=== PATIENT | female | born 1975 | race African-American/Black ===

== ENCOUNTER 2018-01-30 08:26 | Outpatient (CLI) | payer MEDICAID, OTHER | END 2018-01-30 08:27 | disposition home or self-care (01) | LOC: BICULT 08:26 | PROVIDERS: ATTEND Nurse Practitioner Family | DX: N93.9 Abnormal uterine and vaginal bleeding, unspecified (principal) | CPT/HCPCS: 76856 ==

== ENCOUNTER 2018-03-30 12:36 | Outpatient (CLI) | payer OTHER ==
--- NOTE | 2018-03-30 16:07 | MMO ---
BILATERAL SCREENING MAMMOGRAM: HISTORY: A 42-year-old female. Routine screening mammography. COMPARISON: None. Baseline mammogram. TECHNIQUE: CC and MLO views of both breasts are submitted for interpretation. This patient's mammogram is revie wed with the assistance of computer-aided detection. FINDINGS: Breasts are composed of scattered fibroglandular tissue. Bilaterally, no suspicious dominant mass, a rchitectural distortion, or suspicious calcification. IMPRESSION: BI-RADS category 1, negative exam. RECOMMENDATION: Annual mammogram. BIRADS 1: Negative Routine annual screening mammography (for women over age 40) POS: [facility]
== END 2018-03-30 12:37 | disposition home or self-care (01) ==
LOC: SCSMAMMO 12:36
PROVIDERS: ATTEND Nurse Practitioner Family
DX: Z12.31 Encounter for screening mammogram for malignant neoplasm of breast (principal)
CPT/HCPCS: 77067

== ENCOUNTER 2018-05-01 11:03 | Outpatient (CLI) | payer OTHER ==
[2018-05-01 12:39] LABS: Hemoglobin 12.2 g/dL (12.0-16.0); Mean Corpuscular HGB CONC 31.6 g/dL (32.0-36.0); Mean Corpuscular Hemoglobin 31.5 pg (27.0-31.0); Mean Corpuscular Volume 99.8 fL (78.0-98.0); Mean Platelet Volume 8.1 fL (7.4-10.4); Platelet Count 355 thou/uL (130-400); RBC Distribution Width 11.7 % (11.5-14.5); Red Blood Cell (RBC) Count 3.88 mill/uL (4.20-5.40); White Blood Cell (WBC) Count 5.6 thou/uL (4.8-10.8)
== END 2018-05-01 11:04 | disposition home or self-care (01) ==
LOC: LABBT 11:03
PROVIDERS: ATTEND Obstetrics & Gynecology
DX: Z01.812 Encounter for preprocedural laboratory examination (principal); N92.0 Excessive and frequent menstruation with regular cycle
CPT/HCPCS: 85027; 86850; 86900; 86901

== ENCOUNTER 2018-05-04 06:01 | Day surgery (SDC) | payer OTHER ==
--- NOTE | 2018-04-30 10:25 | HP ---
She is scheduled for outpatient day surgery on May 04, 2018. HISTORY OF PRESENT ILLNESS: Ms. Gruber is a 42-year-old -[place] female with previous tubal li gation who has been having heavy menstrual bleeding issues. She is currently on Norethindrone 0.35 m g daily for heavy flow. She has also tried Loestrin oral contraceptives with no benefit. Pap smear in the past year was normal and as noted, she has a tubal ligation for contraception. She had a transvaginal ultrasound performed on March 03, 2018, at [facility] there. There was no evidence of fibroids or abnormal endometrial cavity findings where adnexal masses noted. Ther e was mention of a possible arcuate uterus seen. PAST MEDICAL HISTORY: Chronic hypertension, asthma and chronic back pain. PAST SURGICAL HISTORY: Tubal ligation. CURRENT MEDICATIONS: Amlodipine 5 mg daily, hydrochlorothiazide 12.5 mg daily, naproxen 250 mg b.i.d . p.r.n., norethindrone 0.35 mg daily, ProAir MDI 2 puffs q.4 h. p.r.n. asthma, Topamax 100 mg tablet nightly, tramadol 50 mg q.6 hours p.r.n. pain. ALLERGIES: She has no known drug allergies. SOCIAL HISTORY: She is a nonsmoker. FAMILY HISTORY: Noncontributory. PHYSICAL EXAMINATION: VITAL SIGNS: Her blood pressure is 118/80, weight 254 pounds, height 5 feet 6 inches, BMI of 41. HEENT: Within normal limits. CHEST: Clear to auscultation. HEART: Regular rate and rhythm. S1, S2 heart sounds. No murmurs, rubs, or gallops. ABDOMEN: Soft, nontender, nondistended with no palpable masses. PELVIC: Vulva and vagina had no lesions. Cervix had no lesions. Uterus, normal size, nontender wit h no masses. Adnexa were nontender with no masses. ASSESSMENT: This is a 42-year-old -[place] female with tubal ligation, has failed medical ma nagement trial for menorrhagia. PLAN: Proceed with a trial of a hysteroscopy and D&C with Nicolette ablation procedure. This is sched uled for 05/04/2018.
[2018-05-01 11:30] VITALS: BMI 40.8
[2018-05-04] MEDS ORDERED: CEFAZOLIN/Water 2 GM/20 ML SYRINGE ONE (06:15)
[2018-05-04] MEDS ORDERED: Fentanyl 100 MCG/2 ML VIAL ONE (07:28)
--- NOTE | 2018-05-04 11:01 | OP ---
DATE OF PROCEDURE: 05/04/2018 PREOPERATIVE DIAGNOSES: A 42-year-old female with a tubal ligation with menorrhagia unresponsive to medical management. POSTOPERATIVE DIAGNOSES: 1. A 42-year-old female with a tubal ligation with menorrhagia unresponsive to medi bret management. 2. 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 PROCEDURE PERFORMED: Diagnostic hysteroscopy with D&C. SURGEON: Mary Keenan M.D. ANESTHESIA: General endotracheal. ESTIMATED BLOOD LOSS: Minimal. COMPLICATIONS: None. COUNTS: Correct x2. ANTIBIOTICS: Two grams Ancef secondary history teacher to the OR. FINDINGS: 1. Normal ecto and endocervical cervix. 2. Appears to have a midline septum approximately 1/2 the uterine cavity with inability to visualize bilateral tubal ostia, therefore ablation procedure not performed due to the obstruction of the sept um. 3. The fluid deficit from distension media was 160 mL of saline. DISPOSITION: Recovery room and then discharged to PACU and discharged home. We will then recommend for patient a robotic hysterectomy in the near future for treatment of her menorrhagia. DESCRIPTION OF OPERATIVE PROCEDURE: The patient previously received informed consent in regards to reagan martin. She was taken back to the operating room where she received a general endotracheal anestheti c agent without complications. She was placed in dorsal lithotomy position with use of Melchor stirrup s, prepped and draped in usual sterile fashion. A sidearm speculum was placed in the vagina after th e bladder had been in and out catheterized during the prep process. The sound was noted to sound to 8 cm with somewhat of deviation to the right side of the cavity on initial sounding. The cervix was then sequentially dilated to size 16 Izaguirre dilator. The diagnostic 5 mm hysteroscope Truclear system was assembled and placed through the cervical os. We went through the ectocervix and endocervical c anal, this appeared to be veering to the cavity to the right side which we were able to see the fundu s in this region, but were unable to see the left fundal component and tubal ostia. We redirected di fferent positions and dilated further with inability again to see both tubal ostia and one visualizat ion view. There appeared to be kind of a fibrous type septum midway fpc up the cavity. Due to t he septal symptom findings, the ablation procedure was not performed due to the inability to adequate ly perform this in a safe manner. The hysteroscope and tenaculum along with speculum removed, hemost asis cervical site was confirmed. The patient was awakened from her anesthesia and transferred to [facility] recovery room. Findings will be discussed with the patient and therefore recommendation for a hysterectomy for her m enorrhagia issues will be addressed due to the noted and confirmation of the uterine septum.
[2018-05-04] MEDS ORDERED: Ketorolac Tromethamine 30 MG/ML VIAL ONE (17:17)
[2018-05-04] MEDS ORDERED: Ondansetron PF 4 MG/2 ML Vial ONE (17:17)
[2018-05-04] MEDS ORDERED: PROPOFOL 200 MG/20 ML VIAL ONE (17:17)
[2018-05-04] MEDS ORDERED: Dexamethasone 20 MG/5 ML VIAL ONE (17:17)
== END 2018-05-04 10:50 | disposition home or self-care (01) ==
LOC: SDC 06:01
PROVIDERS: ATTEND Obstetrics & Gynecology
PROC: 0UDB8ZX Extraction of Endometrium, Via Natural or Artificial Opening Endoscopic, Diagnostic (ICD-10-PCS; principal; 2018-05-04)
DX: N92.0 Excessive and frequent menstruation with regular cycle (principal); I10 Essential (primary) hypertension; J45.909 Unspecified asthma, uncomplicated; Z79.899 Other long term (current) drug therapy
CPT/HCPCS: 88305; J1100; J1885; J2405; J2704; J3010

== ENCOUNTER 2018-06-01 10:55 | Outpatient (CLI) | payer OTHER ==
[2018-06-01 13:47] LABS: Hemoglobin 11.1 g/dL (12.0-16.0); Mean Corpuscular HGB CONC 32.4 g/dL (32.0-36.0); Mean Corpuscular Hemoglobin 31.8 pg (27.0-31.0); Mean Platelet Volume 8.6 fL (7.4-10.4); Platelet Count 329 thou/uL (130-400); RBC Distribution Width 11.3 % (11.5-14.5); Red Blood Cell (RBC) Count 3.48 mill/uL (4.20-5.40)
[2018-06-01 13:55] LABS: BHCG - Serum Negative (NEGATIVE); Pregs Control Background? CLEAR/WHITE (CLR/WHITE); Pregs Control Bar Appear? YES (CONTROL BAR)
[2018-06-01 14:03] LABS: ALT (SGPT) 15 U/L (8-55); AST (SGOT) 16 U/L (5-34); Albumin 3.9 g/dL (3.5-5.0); Alkaline Phosphatase 54 U/L (40-150); Anion Gap 10 mmol/L (10-20); BUN (Urea Nitrogen) 9 mg/dL (7.0-18.7); Bilirubin, Total 0.2 mg/dL (0.2-1.2); Calc. Creatinine Clearance 0 mL/min (70-130); Calcium 9.3 mg/dL (7.8-10.44); Carbon Dioxide 28 mmol/L (22-29); Chloride 105 mmol/L (98-107); Estimated GFR-MDRD Greater than 90; Globulin 3.5 g/dL (2.4-3.5); Glucose 88 mg/dL (70-105); Potassium 4.4 mmol/L (3.5-5.1); Protein, Total 7.4 g/dL (6.0-8.3); Sodium 139 mmol/L (136-145)
--- NOTE | 2018-06-01 19:29 | EKG ---
Test Reason : Blood Pressure : / mmHG Vent. Rate : 061 BPM Atrial Rate : 061 BPM P-R Int : 158 ms QRS Dur : 088 ms QT Int : 422 ms P-R-T Axes : 035 058 044 degrees QTc Int : 424 ms Normal sinus rhythm Early repolarization Normal ECG No previous ECGs available Confirmed by DR. Lizbeth SOLANO MD ([id number]) on 06/01/2018 7:28:55 PM Referred By: DARINEL Confirmed By:DR. Lizbeth SOLANO MD
== END 2018-06-01 10:56 | disposition home or self-care (01) ==
LOC: LABBT 10:55
PROVIDERS: ATTEND Obstetrics & Gynecology
DX: Z01.818 Encounter for other preprocedural examination (principal); N92.0 Excessive and frequent menstruation with regular cycle; Q51.20 Other doubling of uterus, unspecified
CPT/HCPCS: 80053; 84703; 85027; 93005; 93010

== ENCOUNTER 2018-06-01 11:00 | Inpatient (IN) | payer OTHER ==
[2018-06-01 11:38] VITALS: BMI 39.5
--- NOTE | 2018-06-02 08:03 | HP ---
DATE OF SURGERY: 06/09/2018 HISTORY OF PRESENT ILLNESS: Ms. Gruber is a 42-year-old female with previous vaginal deliveries and tubal ligation, who has a history of very heavy menstruation. She has been treated wi th norethindrone 0.25 mg daily for heavy flow. She has also tried Loestrin oral contraceptives with no benefit. She has had a recent Pap smear in the past year which was normal and is desiring surgica l therapy for this. She had an attempted diagnostic hysteroscopy with endometrial ablation procedure on 05/04/2018. At that time on hysteroscopic evaluation, she was noted to have a uterine septum roman roximately one-third of the uterine cavity that made it impossible to adequately ablate the endometri al cavity due to positioning of the Nicolette device. Therefore, the procedure was aborted and she is now scheduled for definitive surgical therapy with a robotic hysterectomy. The endometrial sampling at that time was performed, it was benign findings with menstrual endometrium. PAST MEDICAL HISTORY: Significant for chronic hypertension, asthma, and chronic back pain. PAST SURGICAL HISTORY: Noted tubal ligation and then a recent diagnostic hysteroscopy and D&C. CURRENT MEDICATIONS: Amlodipine 5 mg daily, hydrochlorothiazide 12.5 mg daily, naproxen 250 mg b.i.d . p.r.n., ProAir metered dose inhaler 2 puffs q.4 hours p.r.n., Topamax 100 mg nightly, tramadol 50 m g q.6 hours p.r.n. back pain. ALLERGIES: She has no known drug allergies. SOCIAL HISTORY: Non-smoker, minimal alcohol use. FAMILY HISTORY: Noncontributory. PHYSICAL EXAMINATION: VITAL SIGNS: Her blood pressure is 118/80, her weight is 254 pounds, height 5 feet 6 inches, BMI of 41. HEENT: Within normal limits. NECK: Supple, no thyromegaly. CHEST: Clear to auscultation. HEART: Regular rate and rhythm. S1, S2 heart sounds with no murmurs, rubs or gallops. ABDOMEN: Soft, nontender, nondistended. No palpable masses. PELVIC: Vulva and vagina had no lesions. Cervix had no lesions. Uterus is normal size, nontender w ith no masses. Adnexa were nontender with no masses. ASSESSMENT: This is a 42-year-old female, tubal ligation with menorrhagia. Attempt ed hysteroscopy, endometrial ablation procedure recently with noted findings of a uterine septum rivera ng ablation procedure not possible. The patient is desiring definitive surgical therapy and we now p eulogio to proceed with a robotic hysterectomy with bilateral salpingectomy with ovarian preservation as long as the ovaries are normal. Risks and benefits of procedure have been discussed in detail, and s he is set for surgery on 06/09/2018.
[2018-06-09] MEDS ORDERED: CeleCOXIB 100 MG CAP ONE (09:22)
[2018-06-09] MEDS ORDERED: CEFAZOLIN 2 GM/50 ML BAG ONE (09:22)
[2018-06-09] MEDS ORDERED: Famotidine/PF 20 mg/2ml Vial ONE (09:22)
[2018-06-09] MEDS ORDERED: Gabapentin 300 MG CAP ONE (09:22)
[2018-06-09] MEDS ORDERED: Bupivacaine HCl 0.5%/Epinephrine 1:200,000/PF 30 ml Vial ONE (10:33)
[2018-06-09] MEDS ORDERED: Midazolam HCl 2 mg/2 ml Vial ONE (12:05)
[2018-06-09] MEDS ORDERED: Fentanyl 250 MCG/5 ML VIAL ONE (12:05)
[2018-06-09] MEDS ORDERED: Promethazine HCl 25 MG/ML VIAL IM PRN ×2 (14:26→16:43)
[2018-06-09] MEDS ORDERED: Ondansetron HCl/PF 4 MG/2 ML Vial IVP PRN (14:26)
[2018-06-09] MEDS ORDERED: Ketorolac Tromethamine 30 MG/ML VIAL IVP PRN (14:26)
[2018-06-09] MEDS ORDERED: Promethazine HCl 25 MG/ML VIAL SLOW IVP PRN (14:26)
[2018-06-09] MEDS ORDERED: Meperidine HCl/PF 25 MG/ML VIAL SLOW IVP PRN (14:26)
[2018-06-09] MEDS ORDERED: Fentanyl 100 MCG/2 ML VIAL ONE ×2 (14:47→15:18)
[2018-06-09] MEDS ORDERED: Glycopyrrolate 0.2 MG/ML 5 ML SYRINGE ONE (16:32)
[2018-06-09] MEDS ORDERED: PROPOFOL 200 MG/20 ML VIAL ONE (16:32)
[2018-06-09] MEDS ORDERED: Dexamethasone 20 MG/5 ML VIAL ONE (16:32)
[2018-06-09] MEDS ORDERED: Lidocaine 1% PF 5 ML VIAL ONE (16:32)
[2018-06-09] MEDS ORDERED: Ondansetron PF 4 MG/2 ML Vial ONE (16:32)
[2018-06-09] MEDS ORDERED: diphenhydrAMINE 25 MG CAP PO PRN (16:43)
[2018-06-09] MEDS ORDERED: Ondansetron PF 4 MG/2 ML Vial IVP PRN (16:43)
[2018-06-09] MEDS ORDERED: Morphine 4 MG/ML VIAL SLOW IVP PRN (16:43)
[2018-06-09] MEDS ORDERED: Simethicone Chewable 80 MG TAB PO PRN (16:43)
[2018-06-09] MEDS ORDERED: traMADol HCl 50 MG TAB PO PRN ×3 (16:43→17:55)
[2018-06-09] MEDS ORDERED: Bisacodyl 10 MG SUPP PR PRN (16:43)
[2018-06-09] MEDS ORDERED: PROVENTIL INHALER 6.7 G (200 INHALATIONS) INH PRN (17:49)
[2018-06-09] MEDS ORDERED: Methocarbamol 500 MG TAB PO PRN (17:53)
[2018-06-09] MEDS: Labetalol HCl 100 MG/20 ML VIAL SLOW IVP PRN ×3 (19:54→20:38)
[2018-06-09] MEDS: Acetaminophen 1,000 MG in Premix Bag 1 BAG IVPB SCH (19:59)
[2018-06-09] MEDS: Ibuprofen 800 MG TAB PO SCH (20:45)
[2018-06-09] MEDS: Topiramate 100 MG TAB PO SCH (20:47)
[2018-06-09] MEDS ORDERED: Topiramate 100 MG TAB PO SCH (21:00)
--- NOTE | 2018-06-09 22:45 | OP ---
DATE OF PROCEDURE: 06/09/2018 PREOPERATIVE DIAGNOSES: 1. A 42-year-old female with menorrhagia, unresponsive to medical therapy. 2. Previous attempted endometrial ablation, unable to perform due to uterine septum. POSTOPERATIVE DIAGNOSES: 1. A 42-year-old female with menorrhagia, unresponsive to medical therapy. 2. Previous attempted endometrial ablation, unable to perform due to uterine septum. PROCEDURE PERFORMED: Robotic total laparoscopic hysterectomy and bilateral salpingectomy. ANESTHESIA: General endotracheal. ESTIMATED BLOOD LOSS: 50 mL. COMPLICATIONS: None. COUNTS: Correct x2. ANTIBIOTICS: 2 g Ancef, on-call to the OR. PATHOLOGY: Uterus, cervix, and bilateral tubes. FINDINGS: 1. Normal bilateral ovaries and fallopian tubes with pervious salpingectomy. 2. normal-appearing uterus. 3. Bilateral ureteral peristalsis noted post procedure. 4. Clear urine present in Braga catheter post procedure. DISPOSITION: Recovery room, stable. DESCRIPTION OF PROCEDURE: The patient previously received informed consent in regard to surgery. She was taken back to the operating room, where she received a general endotracheal anesthetic agent without complications. She was placed in dorsal lithotomy position with use of Melchor stirrups and prepped and draped in usual sterile fashion. A Braga catheter was placed at this time. A sidearm speculum was placed in the vagina. The anterior lip of the cervix was grasped with single-tooth tenaculum. The uterus sounded to 8 cm and a size 8 cm JANAY uterine manipulator with a 4.0 cm cup was placed in usual fashion. Tenaculum and speculum were then removed. Attention was then turned to the abdomen, where perspective trocar sites were infiltrated with 0.5% Marcaine with epinephrine. A 12 mm supraumbilical incision was made. A Veress needle was placed into the peritoneal cavity. The patient's pressure was noted to be less than 5 and the abdomen was insufflated to the patient's pressure of 15 with approximately 4 L of carbon dioxide gas. Veress needle was then removed and a size 12-mm trocar was then placed in the supraumbilical area. The robotic laparoscope was introduced through the trocar sleeve and proper entry was confirmed. Additional bilateral lower quadrant 8 mm robotic trocar along with the right upper quadrant 11 mm apartment assistant manager port was placed. The patient was placed in deep Trendelenburg and then a robot was docked in usual fashion. I then and proceeded to carry out this procedure from the operative console while my assistants remained at the bedside. The uterus was elevated by my surgical nurse apartment assistant manager and the right fallopian tube was grasped by my apartment assistant manager. The mesosalpinx was then cauterized with bipolar fenestrated cautery and excised with monopolar scissors, removing the tubal segment. Then, the right uterine-ovarian ligament was coagulated and transected. Serial coagulation of broad ligament was then carried out with bipolar fenestrated cautery and then transection to the right round ligament was reached. It was cauterized and then transected. The anterior leaf of the broad ligament was entered and the vesicouterine peritoneum was incised in layering technique. They dropped the bladder past the cervicovaginal angle in atraumatic fashion. The uterine vessels on the right side were then skeletonized and coagulated the internal cervical os region. This was then carried out in likewise fashion on this left side of the uterus where again the left fallopian tube was grasped my apartment assistant manager. Incision in the mesosalpinx with bipolar fenestrated cautery along with monopolar scissors, then removed the left fallopian tube. The left uterine ovarian ligaments were coagulated and transected. Serial coagulation of the broad ligament, peritoneum hugging close to the uterus was carried out until the left round ligament was reached. Again, it was coagulated and transected and then the anterior leaf of the broad ligament again was entered. The vesicouterine peritoneum was incised in layering technique, again dropping the bladder past the cervical vaginal angle. The uterine vessels were again skeletonized at the internal cervical os region. They were coagulated. The anterior colpotomy was then initiated, starting from 12 o'clock to 3 o'clock and 12 o'clock to 9 o'clock in similar fashion. The uterine vessels again were coagulated at 3 o'clock and 9 o'clock position in layering technique and then the posterior colpotomy was completed from 6 o'clock to 9 o'clock and 6 o'clock to 3 o'clock. The uterine specimen was then delivered in the vaginal vault. The monopolar scissors was exchanged for a Marcelo needle entry level truck driver. The vaginal cuff was grasped with the Marcelo needle entry level truck driver and the cuff was coagulated in any areas of bleeding with bipolar fenestrated cautery. Then, my apartment assistant manager brought in the STRATAFIX suture through the right upper quadrant apartment assistant manager port. The vaginal cuff was then closed with a full-thickness closure, starting at the right angle back toward the left angle, the vaginal cuff back toward the midline. The extra suture was then cut and the needle and suture were brought up through the right upper quadrant apartment assistant manager port intact. The vaginal cuff was inspected, hemostasis was confirmed. All their pedicle sites were inspected. These were suctioned and irrigated and then they were again noted to be hemostatic. Bilateral ureteral peristalsis was visualized along with clear urine noted to be draining from the Braga catheter. The robot was then undocked. The trocars sleeves were removed. A deep stitch of 0 Vicryl in a [id number] stitch fashion was placed in the fascial defect at the umbilicus. The remainder of the trocar sites were closed with 4-0 Monocryl suture in subcuticular fashion with Dermabond. The vaginal cuff was inspected with a sponge stick and hemostasis was confirmed. Job ID: [id number]
[2018-06-10] MEDS: Acetaminophen 1,000 MG in Premix Bag 1 BAG IVPB SCH ×2 (00:28→06:11)
[2018-06-10] MEDS: Lactated Ringer's 1,000 ML IV SCH ×2 (00:35→09:02)
[2018-06-10 06:10] LABS: Hemoglobin 10.8 g/dL (12.0-16.0); Mean Corpuscular HGB CONC 31.5 g/dL (32.0-36.0); Mean Corpuscular Hemoglobin 31.1 pg (27.0-31.0); Mean Corpuscular Volume 98.8 fL (78.0-98.0); Mean Platelet Volume 8.5 fL (7.4-10.4); Platelet Count 336 thou/uL (130-400); RBC Distribution Width 11.6 % (11.5-14.5); Red Blood Cell (RBC) Count 3.48 mill/uL (4.20-5.40)
--- NOTE | 2018-06-10 08:06 | PDOC.EVN ---
Event Note - Event Note Event Note: Tolerating diet. Minimal pain. O;AFVSS.. hct 32% abdomen is soft/ non distended. active bowel sounds. tochar sites clean and dry and intact. A/P: Post op day 1. robotic TLH. Doing well. D/c to day.Keep f/u 2 and 6 weeks.
[2018-06-10] MEDS: Ibuprofen 800 MG TAB PO SCH (08:58)
[2018-06-10] MEDS: Topiramate 100 MG TAB PO SCH (08:59)
[2018-06-10] MEDS ORDERED: Ferrous Sulfate 325 MG TAB PO SCH (09:00)
[2018-06-10] MEDS ORDERED: Hydrochlorothiazide 25 MG TAB PO SCH ×2 (09:00)
[2018-06-10 11:57] VITALS: BP 144/69; TEMP 97.8
--- NOTE | 2018-06-11 19:09 | DIS ---
DATE OF ADMISSION: 06/09/2018 DATE OF DISCHARGE: 06/10/2018 DIAGNOSES: 1. Menorrhagia, unresponsive to medical management. 2. Uterine septum. 3. Previously attempted endometrial ablation, unable to complete procedure due to septum. PROCEDURE PERFORMED: During this hospitalization was robotic total laparoscopic hysterectomy and bilateral salpingectomy. SUMMARY OF HOSPITAL COURSE: Ms. Gruber was admitted on 06/09/2018. She underwent an uncomplicated robotic total laparoscopic hysterectomy and bilateral salpingectomy on June 09. Postoperatively, she has done well. Her vital signs remained stable and her hematocrit on postoperative day #1 was 34%. She is ambulating and voiding without difficulty and had good pain control with ibuprofen and tramadol. She was discharged late morning on postoperative day #1. DISCHARGE MEDICATIONS: 1. Tramadol 50 mg q.6 hours p.r.n. pain. 2. Ibuprofen as needed. She is scheduled to followup in 2 and 6 weeks. Pathology is pending at the time of dictation. Job ID: [id number]
== END 2018-06-10 12:49 | disposition home or self-care (01) | DRG 743 ==
LOC: SURG A 06-09 08:54 → OBSVTOIN 06-09 08:54 → INTOOBSV 06-09 08:54 → 3SE 06-09 17:37
PROVIDERS: ADMIT Obstetrics & Gynecology; ATTEND Obstetrics & Gynecology
PROC: 0UT94ZZ Resection of Uterus, Percutaneous Endoscopic Approach (ICD-10-PCS; principal; 2018-06-09)
PROC: 0UT74ZZ Resection of Bilateral Fallopian Tubes, Percutaneous Endoscopic Approach (ICD-10-PCS; 2018-06-09)
PROC: 8E0W4CZ Robotic Assisted Procedure of Trunk Region, Percutaneous Endoscopic Approach (ICD-10-PCS; 2018-06-09)
DX: N92.0 Excessive and frequent menstruation with regular cycle (principal); Q51.20 Other doubling of uterus, unspecified
CPT/HCPCS: 36415; 85027; 88307; J0131; J0670; J1100; J2001; J2250; J2405; J2704; J3010; J3490; S0028

== ENCOUNTER 2018-06-04 09:27 | Outpatient (CLI) | payer OTHER | END 2018-06-04 09:28 | disposition home or self-care (01) | LOC: LABBT 09:27 | PROVIDERS: ATTEND Obstetrics & Gynecology | DX: Z01.812 Encounter for preprocedural laboratory examination (principal); N92.0 Excessive and frequent menstruation with regular cycle; Q51.20 Other doubling of uterus, unspecified | CPT/HCPCS: 86850; 86900; 86901 ==

== ENCOUNTER 2019-04-02 09:53 | Outpatient (CLI) | payer OTHER ==
--- NOTE | 2019-04-02 10:12 | MMO ---
Bilateral MAMMO Bilat Screen DDI. CLINICAL HISTORY: Patient is 43 years old and is seen for screening. The patient has no family history of breast cancer. The patient has no personal history of cancer. VIEWS: The views performed were: bilateral craniocaudal and bilateral mediolateral oblique. FILMS COMPARED: The present examination has been compared to a prior imaging study performed at [facility] on 03/30/2018. This study has been interpreted with the assistance of computer-aided detection. MAMMOGRAM FINDINGS: The breasts are almost entirely fat. There are no suspicious masses, suspicious calcifications, or new areas of architectural distortion. IMPRESSION: THERE IS NO MAMMOGRAPHIC EVIDENCE OF MALIGNANCY. A ROUTINE FOLLOW-UP MAMMOGRAM IN 1 YEAR IS RECOMMENDED. ACR BI-RADS Category 1 - Negative MAMMOGRAPHY NOTE: 1. A negative mammogram report should not delay a biopsy if a dominant of clinically suspicious mass is present. 2. Approximately 10% to 15% of breast cancers are not detected by mammography. 3. Adenosis and dense breasts may obscure an underlying neoplasm. Reported by: POLLO GARCIAS MD Electonically Signed: [id number]
== END 2019-04-02 09:54 | disposition home or self-care (01) ==
LOC: BICMAMMO 09:53
DX: Z12.31 Encounter for screening mammogram for malignant neoplasm of breast (principal)
CPT/HCPCS: 77067

== ENCOUNTER 2021-04-05 07:46 | Outpatient (CLI) | payer OTHER | END 2021-04-05 07:47 | disposition home or self-care (01) | LOC: BICULT 07:46 | PROVIDERS: ATTEND Nurse Practitioner Family | DX: R10.30 Lower abdominal pain, unspecified (principal); R93.2 Abnormal findings on diagnostic imaging of liver and biliary tract; Z90.710 Acquired absence of both cervix and uterus | CPT/HCPCS: 76700; 76856 ==

== ENCOUNTER 2021-06-05 07:54 | Outpatient (CLI) | payer OTHER | END 2021-06-05 07:55 | disposition home or self-care (01) | LOC: BICMAMMO 07:54 | PROVIDERS: ATTEND Nurse Practitioner Family | DX: Z12.31 Encounter for screening mammogram for malignant neoplasm of breast (principal) | CPT/HCPCS: 77067 ==

== ENCOUNTER 2022-08-06 10:09 | Outpatient (CLI) | payer OTHER | END 2022-08-06 10:10 | disposition home or self-care (01) | LOC: BICMAMMO 10:09 | PROVIDERS: ATTEND Nurse Practitioner Family | DX: Z12.31 Encounter for screening mammogram for malignant neoplasm of breast (principal) | CPT/HCPCS: 77067 ==

== ENCOUNTER 2022-09-03 08:00 | Outpatient (CLI) | payer OTHER | END 2022-09-03 08:01 | disposition home or self-care (01) | LOC: BICULT 08:00 | PROVIDERS: ATTEND Family Medicine | DX: N93.9 Abnormal uterine and vaginal bleeding, unspecified (principal); R10.30 Lower abdominal pain, unspecified; N83.202 Unspecified ovarian cyst, left side; Z90.49 Acquired absence of other specified parts of digestive tract; Z90.710 Acquired absence of both cervix and uterus | CPT/HCPCS: 76700; 76856 ==